=== PATIENT | male | born 1970 | race Caucasian/White ===

== ENCOUNTER 2017-09-23 07:17 | Emergency (ER) | payer OTHER ==
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
[2017-09-23 07:37] VITALS: BP 110/72
== END 2017-09-23 07:52 ==
LOC: ERH 07:17
DX: Z48.02 Encounter for removal of sutures (principal)